=== PATIENT | male | born 2000 | race Caucasian/White ===

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

== ENCOUNTER 2022-04-11 13:04 | Emergency (ER) | payer OTHER ==
--- OUTSIDE RECORDS SUMMARY | 2022-04-11 13:06 | XMS REPORT | Continuity of Care Document ---
:2000 Author Organization [facility] t Address [address] [place] [address] Care Team Providers Name Role Phone [email or web address]_S Attending Clinician Unavailable [email or web address]_S Admitting Clinician Unavailable Payers Payer Name Policy Type Policy Number Effective Date Expiration Date Tiera elias [facility] [id number] 2016 00:00:00 [employer] (MEDICAID HMO) Problems This patient has no known problems. Allergies, Adverse Reactions, Alerts This patient has no known allergies or adverse reactions. Medications This patient has no known medications. Procedures This patient has no known procedures. Encounters Start End Encounter Admission Attending Care Care Encounter Source Date/Time Date/Time Type Type Clinicians Facility Department ID 2022-02-02 2022-02-02 Outpatient GC_TNC_Lovi PRIV PRIV [id number] [facility] 03:41:00 03:41:00 tt_S [id number] [facility] 2022-01-05 2022-01-05 Outpatient GC_TNC_[facility] PRIV PRIV [id number] [facility] 04:18:00 04:18:00 tt_S [id number] Med[facility] 2021-12-08 2021-12-08 Outpatient GC_TNC_[facility] PRIV PRIV [id number] [facility] 03:38:00 03:38:00 tt_S [id number] Med[facility] 2021-11-22 2021-11-22 Outpatient GC_TNC_Lovi PRIV PRIV [id number] [facility] 06:22:00 06:22:00 tt_S [id number] Med[facility] 2021-10-12 2021-10-12 Outpatient GC_TNC_[facility] PRIV PRIV [id number] [facility] 05:16:00 05:16:00 tt_S [id number] Med[facility] 2021-10-04 2021-10-04 Outpatient GC_TNC_[facility] PRIV PRIV [id number] [facility] 04:40:00 04:40:00 tt_S [id number] Med[facility] 2021-10-03 2021-10-03 Outpatient GC_TNC_[facility] PRIV PRIV [id number] [facility] 10:35:00 10:35:00 tt_S [id number] Medica l Results This patient has no known results.
--- NOTE | 2022-04-11 15:52 | EDPHYS ---
Physician Documentation [facility] Name: Jacques Arvizu Age: 21 yrs Sex: Male : 2000 Arrival Date: 04/11/2022 Time: 13:06 Bed DIS2 Private MD: ED Physician Julien De Luna HPI: 04/11 13:42 This 21 yrs old Male presents to ER via Ambulatory with complaints of Fever, Cough, jmm Runny Nose, Congestion, Chills. 13:42 Onset: The symptoms/episode began/occurred gradually, 1 day(s) ago. Modifying factors: jmm The patient has had contact with sick co-worker(s). 13:42 It is unknown whether or not the patient has had similar symptoms in the past. jmm 13:42 Associated signs and symptoms: Pertinent positives: cough. jm Historical: - Allergies: 13:31 No Known Allergies; ap3 - Home Meds: 13:31 ProAir HFA inhalation [Active]; ap3 - PMHx: 13:31 Asthma; ap3 - Immunization history:: Client reports receiving the 2nd dose of the Covid vaccine, Flu vaccine is up to date. - Social history:: Smoking status: Reported history of juuling and/or vaping. ROS: 13:42 Constitutional: Positive for body aches, chills. jmm 13:42 ENT: Positive for sore throat. 13:42 Respiratory: Positive for cough. 13:42 All other systems are negative. Exam: 13:42 Constitutional: This is a well developed, well nourished patient who is awake, alert, jmm and in no acute distress. Head/Face: atraumatic. Eyes: EOMI, no conjunctival erythema appreciated 13:42 Neck: Trachea midline, Supple Chest/axilla: Normal chest wall appearance and motion. Cardiovascular: Regular rate and rhythm. No edema appreciated Respiratory: Normal respirations, no respiratory distress appreciated Abdomen/GI: Non distended, soft Back: Normal ROM Skin: General appearance color normal MS/ Extremity: Moves all extremities, no obvious deformities appreciated, no edema noted to the lower extremities Neuro: Awake and alert Psych: Behavior is normal, Mood is normal, Patient is cooperative and pleasant 13:42 ENT: Posterior pharynx: Airway: normal, Tonsils: enlarged on the right, with erythema, erythema, that is moderate. Vital Signs: 13:29 BP 129 / 73; Pulse 91; Resp 17; Temp 98.5; Pulse Ox 99% ; Weight 108.86 kg; Height 6 ap3 ft. 3 in. (190.50 cm); 13:29 Body Mass Index 30.00 (108.86 kg, 190.50 cm) ap3 MDM: 13:42 Patient medically screened. [facility] 15:47 Data reviewed: vital signs, nurses notes. Counseling: I had a detailed discussion with [facility] the patient and/or guardian regarding: the historical points, exam findings, and any diagnostic results supporting the discharge/admit diagnosis, lab results, the need for outpatient follow up, to return to the emergency department if symptoms worsen or persist or if there are any questions or concerns that arise at home. ED course: Patient is alert and non toxic in appearance in the ED. No signs of resp distress. Patient advised to follow up with pcp and otherwise given strict return precautions. patient understood and agrees with the plan of care. . 04/11 13:19 Order name: Influenza Screen (a \\T\\ B); Complete Time: 15:17 [facility] 04/11 13:19 Order name: Strep; Complete Time: 15:17 [facility] 04/11 13:19 Order name: SARS-COV-2 RT PCR (Document "Date of Onset" if Symptomatic); Complete Time: [facility] 15:17 04/11 14:36 Order name: Throat Culture EDMS Administered Medications: No medications were administered Disposition Summary: 04/11/22 15:52 Discharge Ordered Location: Home [facility] Condition: Stable [facility] Diagnosis - Acute pharyngitis, unspecified [facility] Followup: [facility] - With: Private Physician - When: 2 - 3 days - Reason: Recheck today's complaints, Continuance of care, Re-evaluation by your physician Discharge Instructions: - Discharge Summary Sheet [facility] - Pharyngitis [facility] Forms: - Medication Reconciliation Form [facility] - Work release form [facility] - Thank You Letter [facility] - Antibiotic Education [facility] - Prescription Opioid Use [facility] Prescriptions: - cefdinir 300 mg Oral capsule - take 1 capsule by ORAL route every 12 hours for 10 days; 20 capsule; Refills: [facility] 0, Product Selection Permitted - albuterol sulfate 90 mcg/actuation Inhalation HFA aerosol inhaler - inhale 2 puff by INHALATION route every 4-6 hours; 1 Pump; Refills: 0, Product jm Selection Permitted Addendum: 04/12/2022 23:19 Co-signature as Attending Physician, Julien De Luna MD. r n Signatures: Dispatcher [employer] Alex Fernandez PA PA jmm Nieto, Roman, MD MD rn Gerda Martinez RN RN ap3 Corrections: (The following items were deleted from the chart) 04/11 13:32 13:31 Home Meds: None; ap3 ap3
--- NOTE | 2022-04-11 15:52 | ER ---
Nurse's Notes [facility] Name: Jacques Arvizu Age: 21 yrs Sex: Male : 2000 Arrival Date: 04/11/2022 Time: 13:06 Bed DIS2 Private MD: Diagnosis: Acute pharyngitis, unspecified Presentation: 04/11 13:29 Chief complaint: Patient states: he has been experiencing cough, chills and body aches ap3 which began yesterday morning. patient reports that his coworker tested positive for COVID, and believes he might have it as well. Coronavirus screen: Client presents with at least one sign or symptom that may indicate coronavirus-19. Ebola Screen: No symptoms or risks identified at this time. Initial Sepsis Screen: Does the patient meet any 2 criteria? Yes Does the patient have a suspected source of infection? No. Patient's initial sepsis screen is negative. Risk Assessment: Do you want to hurt yourself or someone else? Patient reports no desire to harm self or others. Onset of symptoms was April 10, 2022. 13:29 Method Of Arrival: Ambulatory ap3 13:29 Acuity: TORI 4 ap3 Triage Assessment: 13:32 General: Appears in no apparent distress. Behavior is calm, cooperative. Pain: ap3 Complains of pain in generalized body aches. EENT: Reports nasal congestion. Neuro: Level of Consciousness is awake, alert, obeys commands, Oriented to person, place, time, situation, Appropriate for age. Cardiovascular: Patient's skin is warm and dry. Respiratory: Airway is patent Respiratory effort is even, unlabored, Breath sounds are clear bilaterally. Historical: - Allergies: 13:31 No Known Allergies; ap3 - Home Meds: 13:31 ProAir HFA inhalation [Active]; ap3 - PMHx: 13:31 Asthma; ap3 - Immunization history:: Client reports receiving the 2nd dose of the Covid vaccine, Flu vaccine is up to date. - Social history:: Smoking status: Reported history of juuling and/or vaping. Screenin:33 Abuse screen: Denies threats or abuse. Nutritional screening: No deficits noted. ap3 Tuberculosis screening: No symptoms or risk factors identified. Fall Risk None identified. Assessment: 16:02 General: Appears in no apparent distress. Behavior is calm, cooperative. Pain: iw Complains of pain in throat. Neuro: Webb Agitation-Sedation Scale (RASS): 0 - Alert and Calm Level of Consciousness is awake, alert, obeys commands, Oriented to person, place, time, situation, Moves all extremities. Cardiovascular: Patient's skin is warm and dry. Respiratory: Respiratory effort is even, unlabored, Respiratory pattern is regular, symmetrical. Respiratory: Reports cough that is. Derm: Skin is intact, is healthy with good turgor. Vital Signs: 13:29 BP 129 / 73; Pulse 91; Resp 17; Temp 98.5; Pulse Ox 99% ; Weight 108.86 kg; Height 6 ap3 ft. 3 in. (190.50 cm); 13:29 Body Mass Index 30.00 (108.86 kg, 190.50 cm) ap3 ED Course: 13:06 Patient arrived in ED. rg4 13:09 Alex Hernandez PA is PHCP. yari 13:09 Julien De Luna MD is Attending Physician. [facility] 13:31 Triage completed. ap3 13:33 Arm band placed on right wrist. ap3 13:38 COVID swab sent to lab. Flu and/or RSV swab sent to lab. Strep swab sent to lab. ap3 14:49 Darline Mock, RN is Primary Nurse. aa5 16:02 Jocelyn Doss, KIRAN is Primary Nurse. iw 16:03 Patient has correct armband on for positive identification. iw 16:03 No provider procedures requiring assistance completed. Patient did not have IV access iw during this emergency room visit. Administered Medications: No medications were administered Medication: 16:03 VIS not applicable for this client. iw Outcome: 15:52 Discharge ordered by MD. [facility] 16:03 Discharged to home ambulatory. iw 16:03 Condition: good 16:03 Discharge instructions given to patient, Instructed on discharge instructions, follow up and referral plans. medication usage, Demonstrated understanding of instructions, follow-up care, medications, Prescriptions given X 2. 16:03 Patient left the ED. iw Signatures: Alex Hernandez PA PA jmm Williams, Irene, RN RN iw Calderon, Audri, RN RN Deirdre Riggs rg4 Gerda Martinez RN RN ap3 Corrections: (The following items were deleted from the chart) 13:32 13:31 Home Meds: None; ap3 ap3
[2022-04-11 16:20] VITALS: BP 129/73; TEMP 98.5; O2SAT 99
== END 2022-04-11 16:03 | disposition home or self-care (01) ==
LOC: ER 13:04
DX: J02.9 Acute pharyngitis, unspecified (principal); R05.9 Cough, unspecified; J45.909 Unspecified asthma, uncomplicated; Z20.822 Contact with and (suspected) exposure to COVID-19
CPT/HCPCS: 87070; 87081; 87804 ×2; 99283; U0003

== ENCOUNTER 2022-07-12 17:02 | Emergency (ER) | payer OTHER ==
--- OUTSIDE RECORDS SUMMARY | 2022-07-12 17:05 | XMS REPORT | Continuity of Care Document ---
:2000 Author Organization [facility] t Address [address] [place] [address] Care Team Providers Name Role Phone GC_TNC_Lovitt_S Attending Clinician Unavailable GC_TNC_Lovitt_S Admitting Clinician Unavailable Payers Payer Name Policy Type Policy Number Effective Date Expiration Date Tiera elias [facility] [id number] 2016 00:00:00 [employer] (MEDICAID HMO) Problems [...] 2022-02-02 2022-02-02 Outpatient GC_TNC_Lovi PRIV PRIV [id number] [facility] 03:41:00 03:41:00 tt_S [id number] [facility] 2022-01-05 2022-01-05 Outpatient GC_TNC_Lovi PRIV PRIV [id number] [facility] 04:18:00 04:18:00 tt_S [id number] Medica [facility] 2021-12-08 2021-12-08 Outpatient GC_TNC_Lovi PRIV PRIV [id number] [facility] 03:38:00 03:38:00 tt_S [id number] Medica l 2021-11-22 2021-11-22 Outpatient GC_TNC_Lovi PRIV PRIV [id number] [facility] 06:22:00 06:22:00 tt_S [id number] Medica l 2021-10-12 2021-10-12 Outpatient GC_TNC_Lovi PRIV PRIV [id number] [facility] 05:16:00 05:16:00 tt_S [id number] Medica l 2021-10-04 2021-10-04 Outpatient GC_TNC_Lovi PRIV PRIV [id number] [facility] 04:40:00 04:40:00 tt_S [id number] Medica l 2021-10-03 2021-10-03 Outpatient GC_TNC_Lovi PRIV PRIV [id number] [facility] 10:35:00 10:35:00 tt_S [id number] Medica l Results This patient has no known results.
--- NOTE | 2022-07-12 18:20 | EDPHYS ---
Physician Documentation [facility] Name: Jacques Arvizu Age: 22 yrs Sex: Male : 2000 Arrival Date: 07/12/2022 Time: 17:05 Bed Waiting Private MD: ED Physician Christos Leos HPI: 07/12 18:18 This 22 yrs old Male presents to ER via Ambulatory with complaints of Sore Throat. jmm 18:18 The patient presents with sore throat. Onset: The symptoms/episode began/occurred jmm gradually, 4 day(s) ago. Modifying factors: The symptoms are alleviated by nothing, the symptoms are aggravated by nothing. Associated signs and symptoms: Pertinent positives: cough, Pertinent negatives chest pain, fever. The patient has experienced similar episodes in the past. Historical: - Allergies: 18:09 No Known Allergies; kb3 - Home Meds: 18:09 ProAir HFA inhalation [Active]; kb3 - PMHx: 18:09 Asthma; kb3 - PSHx: 18:09 None; kb3 - Immunization history:: Adult Immunizations up to date, Client reports receiving the 2nd dose of the Covid vaccine, Last tetanus immunization: unknown. - Social history:: Smoking status: Patient denies any tobacco usage or history of. ROS: 18:18 Constitutional: Positive for body aches, chills. jmm 18:18 ENT: Positive for sore throat. 18:18 Respiratory: Positive for cough. 18:18 All other systems are negative. Exam: 18:18 Constitutional: This is a well developed, well nourished patient who is awake, alert, jmm and in no acute distress. Head/Face: atraumatic. Eyes: EOMI, no conjunctival erythema appreciated 18:18 Neck: Trachea midline, Supple Chest/axilla: Normal chest wall appearance and motion. Cardiovascular: Regular rate and rhythm. No edema appreciated Respiratory: Normal respirations, no respiratory distress appreciated Abdomen/GI: Non distended Back: Normal ROM Skin: General appearance color normal MS/ Extremity: Moves all extremities, no obvious deformities appreciated, no edema noted to the lower extremities Neuro: Awake and alert Psych: Behavior is normal, Mood is normal, Patient is cooperative and pleasant 18:18 ENT: Posterior pharynx: erythema, that is moderate, peritonsillar mass, is not appreciated. Vital Signs: 18:06 Pulse 95; Resp 20; Temp 98.8; Pulse Ox 99% ; Weight 108.86 kg; Height 6 ft. 3 in. kb3 (190.50 cm); Pain 4/10; 18:06 Body Mass Index 30.00 (108.86 kg, 190.50 cm) kb3 MDM: 18:11 Patient medically screened. [facility] 18:18 Data reviewed: vital signs, nurses notes. Counseling: I had a detailed discussion with yari the patient and/or guardian regarding: the historical points, exam findings, and any diagnostic results supporting the discharge/admit diagnosis, the need for outpatient follow up, to return to the emergency department if symptoms worsen or persist or if there are any questions or concerns that arise at home. 07/12 18:12 Order name: Strep; Complete Time: 18:37 [facility] 07/12 18:37 Order name: Throat Culture EDMS Administered Medications: 18:17 Drug: Decadron (dexamethasone) 10 mg Route: IM; Site: left deltoid; kb3 Disposition: 23:09 Co-signature as Attending Physician, Christos Leos DO I agree with the assessment and ms3 plan of care. Disposition Summary: 07/12/22 18:19 Discharge Ordered Location: Home [facility] Condition: Stable [facility] Diagnosis - Acute pharyngitis, unspecified [facility] Followup: [facility] - With: Private Physician - When: 2 - 3 days - Reason: Recheck today's complaints, Continuance of care, Re-evaluation by your physician Discharge Instructions: - Discharge Summary Sheet [facility] - Pharyngitis [facility] Forms: - Medication Reconciliation Form [facility] - Thank You Letter [facility] - Antibiotic Education [facility] - Prescription Opioid Use [facility] - Work release form kb3 Prescriptions: - Amoxicillin 875 mg Oral Tablet - take 1 tablet by ORAL route every 12 hours for 10 days; 20 tablet; Refills: 0, [facility] Product Selection Permitted - albuterol sulfate 90 mcg/actuation Inhalation HFA aerosol inhaler - inhale 2 puff by INHALATION route every 4 hours As needed; 1 Pump; Refills: 0, [facility] Product Selection Permitted Signatures: Dispatcher [employer] EDAlex Mcdaniel PA PA jmm Sims, Marcus, DO DO ms3 Angelica Aponte, RN RN kb3
--- NOTE | 2022-07-12 18:20 | ER ---
Nurse's Notes [facility] Sia Name: Jacques Arvizu Age: 22 yrs Sex: Male : 2000 Arrival Date: 07/12/2022 Time: 17:05 Bed Waiting Private MD: Diagnosis: Acute pharyngitis, unspecified Presentation: 07/12 18:06 Chief complaint: Patient states: Pt reports sore throat x4 days, cough/congestion, kb3 nasal congestion/runny nose since today. Coronavirus screen: Vaccine status: Patient reports receiving the 2nd dose of the covid vaccine. Client denies travel out of the [place] in the last 14 days. Ebola Screen: Patient negative for fever greater than or equal to 101.5 degrees Fahrenheit, and additional compatible Ebola Virus Disease symptoms Patient denies exposure to infectious person. Patient denies travel to an Ebola-affected area in the 21 days before illness onset. No symptoms or risks identified at this time. Initial Sepsis Screen: Does the patient meet any 2 criteria? No. Patient's initial sepsis screen is negative. Does the patient have a suspected source of infection? No. Patient's initial sepsis screen is negative. Risk Assessment: Do you want to hurt yourself or someone else? Patient reports no desire to harm self or others. Onset of symptoms was July 08, 2022. 18:06 Method Of Arrival: Ambulatory kb3 18:06 Acuity: TORI 4 kb3 Triage Assessment: 18:09 General: Appears in no apparent distress. Behavior is calm, cooperative. Pain: kb3 Complains of pain in neck Pain does not radiate. Pain currently is 4 out of 10 on a pain scale. EENT: Throat is reddened has enlarged tonsils. Historical: - Allergies: 18:09 No Known Allergies; kb3 - Home Meds: 18:09 ProAir HFA inhalation [Active]; kb3 - PMHx: 18:09 Asthma; kb3 - PSHx: 18:09 None; kb3 - Immunization history:: Adult Immunizations up to date, Client reports receiving the 2nd dose of the Covid vaccine, Last tetanus immunization: unknown. - Social history:: Smoking status: Patient denies any tobacco usage or history of. Screenin:15 Abuse screen: Denies threats or abuse. Denies injuries from another. Nutritional kb3 screening: No deficits noted. Tuberculosis screening: No symptoms or risk factors identified. Fall Risk None identified. Assessment: 18:15 General: See triage note. Strep swab done in triage. PT awaiting results in lobby. kb3 18:15 Respiratory: Airway is patent Respiratory effort is even, unlabored, Breath sounds are kb3 clear bilaterally. Vital Signs: 18:06 Pulse 95; Resp 20; Temp 98.8; Pulse Ox 99% ; Weight 108.86 kg; Height 6 ft. 3 in. kb3 (190.50 cm); Pain 4/10; 18:06 Body Mass Index 30.00 (108.86 kg, 190.50 cm) kb3 ED Course: 17:05 Patient arrived in ED. mr 17:07 Alex Hernandez PA is PHCP. [facility] 17:07 Christos Leos DO is Attending Physician. [facility] 18:09 Triage completed. kb3 18:09 Arm band placed on left wrist. kb3 18:15 Patient has correct armband on for positive identification. kb3 18:15 No provider procedures requiring assistance completed. Patient did not have IV access kb3 during this emergency room visit. Administered Medications: 18:17 Drug: Decadron (dexamethasone) 10 mg Route: IM; Site: left deltoid; kb3 Medication: 18:15 VIS not applicable for this client. kb3 Outcome: 18:19 Discharge ordered by . [facility] 18:52 Discharged to home ambulatory. kb3 18:52 Condition: good 18:52 Discharge instructions given to patient, Instructed on discharge instructions, follow up and referral plans. medication usage, Demonstrated understanding of instructions, follow-up care, medications, Prescriptions given X 2. 18:52 Patient left the ED. kb3 Signatures: Alex Hernandez PA PA jmm Rivera, Mary mr AponteAngelica, RN RN kb3 Corrections: (The following items were deleted from the chart) 18:51 18:50 General: See triage note. Strep swab done in triage. PT awaiting results in kb3 lobby. kb3
[2022-07-12] MEDS ORDERED: dexAMETHasone 10 MG/ML VIAL ONE (18:24)
[2022-07-12 19:56] VITALS: TEMP 98.8; O2SAT 99
== END 2022-07-12 18:52 | disposition home or self-care (01) ==
LOC: ER 17:02
DX: J02.9 Acute pharyngitis, unspecified (principal); J45.909 Unspecified asthma, uncomplicated
CPT/HCPCS: 87070; 87081; 96372; 99283; J1100

== ENCOUNTER 2023-01-05 07:22 | Emergency (ER) | payer OTHER ==
--- OUTSIDE RECORDS SUMMARY | 2023-01-05 07:24 | XMS REPORT | Continuity of Care Document ---
:[address] [facility] t Address [address] [place] [address] Care Team Providers Name Role Phone GC_TNC_Lovitt_S Attending Clinician Unavailable GC_TNC_Lovitt_S Admitting Clinician Unavailable Payers Payer Name Policy Type Policy Number Effective Date Expiration Date Tiera elias [facility] [id number] 2016 00:00:00 [employer] (MEDICAID HMO) Problems [...] 2022-02-02 2022-02-02 Outpatient GC_TNC_Lovi PRIV PRIV [id number] [facility] 03:41:00 03:41:00 tt_S [id number] Medica l 2022-01-05 2022-01-05 Outpatient GC_TNC_Lovi PRIV PRIV [id number] [facility] 04:18:00 04:18:00 tt_S [id number] Medica l 2021-12-08 2021-12-08 Outpatient GC_TNC_Lovi PRIV PRIV [id number] [facility] 03:38:00 03:38:00 tt_S [id number] Medica l 2021-11-22 2021-11-22 Outpatient GC_TNC_Lovi PRIV PRIV [id number] [facility] 06:22:00 06:22:00 tt_S [id number] Medica l 2021-10-12 2021-10-12 Outpatient GC_TNC_Lovi PRIV PRIV [id number] [facility] 05:16:00 05:16:00 tt_S [id number] Medica l 2021-10-04 2021-10-04 Outpatient GC_TNC_Lovi PRIV PRIV [id number] [facility] 04:40:00 04:40:00 tt_S [id number] Medica l 2021-10-03 2021-10-03 Outpatient GC_TNC_Lovi PRIV PRIV [id number] [facility] 10:35:00 10:35:00 tt_S [id number] Medica l Results This patient has no known results.
[2023-01-05] MEDS ORDERED: IBUPROFEN 200 MG TAB PO ONE (07:43)
[2023-01-05] MEDS ORDERED: IBUPROFEN 400 MG TAB ONE (07:43)
[2023-01-05 08:37] LABS: SARS-COV-2 RT PCR NEGATIVE (NEGATIVE)
--- NOTE | 2023-01-05 08:39 | RAD REPORT ---
EXAM DESCRIPTION: RAD - Chest Pa And Lat (2 Views) - 01/05/2023 8:31 am CLINICAL HISTORY: Cough COMPARISON: <Comparisons> FINDINGS: Lines: None. Lungs: No evidence of edema or pneumonia. Pleural: No significant pleural effusions or pneumothorax. Cardiac: The heart size is within normal limits. Mediastinum: Within normal limits. Bones: No acute fractures. Other: None IMPRESSION: No acute cardiopulmonary disease.
--- NOTE | 2023-01-05 08:58 | ER ---
Nurse's Notes [facility] Name: Jacques Arvizu Age: 22 yrs Sex: Male : 2000 Arrival Date: 01/05/2023 Time: 07:25 Bed 5 Private MD: Diagnosis: Acute upper respiratory infection, unspecified;Cough;Myalgia Presentation: 01/05 07:26 Chief complaint: Patient states: nausea x 1 week. Sore throat, subjective fever, cough, aa5 body aches since yesterday. 07:26 Coronavirus screen: cough unrelated to allergies, fever, muscle pain, nausea. Ebola aa5 Screen: Patient denies travel to an Ebola-affected area in the 21 days before illness onset. Initial Sepsis Screen: Does the patient meet any 2 criteria? No. Patient's initial sepsis screen is negative. Does the patient have a suspected source of infection? No. Patient's initial sepsis screen is negative. Risk Assessment: Do you want to hurt yourself or someone else? Patient reports no desire to harm self or others. Onset of symptoms was December 2022. 07:26 Acuity: TORI 4 aa5 07:26 Method Of Arrival: Ambulatory aa5 Historical: - Allergies: 07:35 No Known Allergies; aa5 - PMHx: 07:35 Asthma; aa5 - Immunization history:: Adult Immunizations unknown. - Social history:: Smoking status: Patient denies any tobacco usage or history of. Screenin:26 [facility] ED Fall Risk Assessment (Adult) History of falling in the last 3 months, aa5 including since admission No falls in past 3 months (0 pts) Confusion or Disorientation No (0 pts) Intoxicated or Sedated No (0 pts) Impaired Gait No (0 pts) Mobility Assist Device Used No (0 pt) Altered Elimination No (0 pt) Score/Fall Risk Level 0 - 2 = Low Risk. Abuse screen: Denies threats or abuse. Nutritional screening: No deficits noted. Tuberculosis screening: No symptoms or risk factors identified. Assessment: 07:26 General: Appears comfortable, Behavior is calm, cooperative. Pain: Denies pain. Neuro: aa5 Level of Consciousness is awake, alert, obeys commands, Oriented to person, place, time, situation. Cardiovascular: Heart tones S1 S2 present Rhythm is regular. Respiratory: Airway is patent Respiratory effort is even, unlabored, Respiratory pattern is regular, symmetrical, Breath sounds are clear bilaterally. GI: Abdomen is round non-distended, Bowel sounds present X 4 quads. Reports nausea, Patient currently denies vomiting. : No signs and/or symptoms were reported regarding the genitourinary system. EENT: Reports sore throat . Derm: Skin is pink, warm \T\ dry. Musculoskeletal: Range of motion: intact in all extremities. 09:18 Reassessment: Patient appears in no apparent distress at this time. Patient and/or iw family updated on plan of care and expected duration. Pain level reassessed. Patient is alert, oriented x 3, equal unlabored respirations, skin warm/dry/pink. Patient states feeling better. Patient states symptoms have improved. Vital Signs: 07:26 BP 134 / 80; Pulse 75; Resp 18 S; Temp 98.0(O); Pulse Ox 99% on R/A; Weight 108.86 kg aa5 (R); Height 6 ft. 3 in. (190.50 cm) (R); Pain 0/10; 07:26 Body Mass Index 30.00 (108.86 kg, 190.50 cm) aa5 ED Course: 07:25 Patient arrived in ED. mr 07:26 Arm band placed on. aa5 07:26 Patient has correct armband on for positive identification. Bed in low position. Call aa5 light in reach. Side rails up X 1. Adult w/ patient. 07:27 Christos Leos DO is Attending Physician. ms3 07:33 Darline Mock, RN is Primary Nurse. aa5 07:35 Triage completed. aa5 08:58 John Gallegos MD is Referral Physician. ms3 09:18 No provider procedures requiring assistance completed. Patient did not have IV access iw during this emergency room visit. Administered Medications: 07:42 Drug: Ibuprofen 600 mg Route: PO; aa5 Medication: 09:18 VIS not applicable for this client. iw Outcome: 08:58 Discharge ordered by . ms3 09:18 Discharged to home ambulatory, with family. iw 09:18 Condition: good 09:18 Discharge instructions given to patient, family, Instructed on discharge instructions, follow up and referral plans. medication usage, Demonstrated understanding of instructions, follow-up care, medications, Prescriptions given X 1. 09:18 Patient left the ED. iw Signatures: Carlos Liliana mr Jocelyn Doss, RN RN iw Darline Mock, RN RN aa5 Leos, Christos, DO ms3 Corrections: (The following items were deleted from the chart) 07:49 07:26 Respiratory: Airway is patent Respiratory effort is even, unlabored, Respiratory aa5 pattern is regular, symmetrical, aa5 07:49 07:26 GI: Abdomen is round non-distended, Bowel sounds present X 4 quads. aa5 aa5
--- NOTE | 2023-01-05 08:58 | EDPHYS ---
Physician Documentation [facility] Name: Jacques Arvizu Age: 22 yrs Sex: Male : 2000 Arrival Date: 01/05/2023 Time: 07:25 Bed 5 Private MD: ED Physician Christos Leos HPI: 01/05 08:02 This 22 yrs old Male presents to ER via Ambulatory with complaints of Flu Symptoms. ms3 08:02 22-year-old male with past medical history of asthma presents for nausea x1 week, sore ms3 throat that began yesterday and fever that began at 4 AM. Patient endorses cough and body aches. Patient denies pain at this time. Patient denies alleviating or inciting factors. Patient has not taken medications for symptoms. Historical: - Allergies: 07:35 No Known Allergies; aa5 - PMHx: 07:35 Asthma; aa5 - Immunization history:: Adult Immunizations unknown. - Social history:: Smoking status: Patient denies any tobacco usage or history of. ROS: 08:02 Constitutional: Negative for fever, and chills. Neck: Negative for injury, pain, and ms3 swelling, Cardiovascular: Negative for chest pain, and palpitations. Abdomen/GI: Negative for abdominal pain, nausea, vomiting, diarrhea, and constipation, Back: Negative for injury and pain, MS/Extremity: Negative for injury and deformity, Skin: Negative for injury, rash, and discoloration. 08:02 ENT: Positive for sore throat. 08:02 Respiratory: Positive for cough. 08:02 All other systems are negative. Exam: 08:02 Constitutional: This is a well developed, well nourished patient who is awake, alert, ms3 and in no acute distress. Head/Face: Normocephalic, atraumatic. Chest/axilla: Normal chest wall appearance and motion. Nontender with no deformity. Cardiovascular: Regular rate and rhythm with a normal S1 and S2. No gallops, murmurs, or rubs. Normal PMI, no JVD. No pulse deficits. Respiratory: Lungs have equal breath sounds bilaterally, clear to auscultation and percussion. No rales, rhonchi or wheezes noted. No increased work of breathing, no retractions or nasal flaring. Abdomen/GI: Soft, non-tender, with normal bowel sounds. No distension or tympany. No guarding or rebound. No evidence of tenderness throughout. Skin: Warm, dry with normal turgor. Normal color with no rashes, no lesions, and no evidence of cellulitis. 08:02 ENT: PND. Vital Signs: 07:26 BP 134 / 80; Pulse 75; Resp 18 S; Temp 98.0(O); Pulse Ox 99% on R/A; Weight 108.86 kg aa5 (R); Height 6 ft. 3 in. (190.50 cm) (R); Pain 0/10; 07:26 Body Mass Index 30.00 (108.86 kg, 190.50 cm) aa5 MDM: 07:36 Patient medically screened. ms3 08:02 Differential Diagnosis: Bronchitis Influenza Upper Respiratory Infection Viral Syndrome ms3 Pneumonia. 08:31 Independent interpretation of the following test(s) in the Emergency Department X-Ray: ms3 My interpretation is Xray image reviewed by me shows no PNA. 09:01 Data reviewed: vital signs, nurses notes, lab test result(s), radiologic studies, and ms3 as a result, I will discharge patient. I considered the following discharge prescriptions or medication management in the emergency department Medications were administered in the Emergency Department. See MAR. I considered the following discharge prescriptions or medication management in the emergency department I discussed and recommended Over The Counter medications. Independent interpretation of the following test(s) in the Emergency Department. Historians other than the Patient: Parent: Patients father. Counseling: I had a detailed discussion with the patient and/or guardian regarding: the historical points, exam findings, and any diagnostic results supporting the discharge/admit diagnosis, lab results, radiology results, the need for outpatient follow up, to return to the emergency department if symptoms worsen or persist or if there are any questions or concerns that arise at home. ED course: Discussed negative chest x-ray, negative flu, negative COVID with patient and his father. Patient to follow-up with Dr. Gallegos in 2 to 3 days. Patient understands and agrees with plan. All questions were answered. Return precautions discussed include worsening symptoms, or any other concerns. Patient given prescription for albuterol inhaler. On reevaluation patient is alert and oriented x4, no apparent distress, nontoxic, ambulatory in emergency department, speaking full sentences. 01/05 07:36 Order name: COVID-19/FLU A+B ms3 01/05 07:36 Order name: Chest Pa And Lat (2 Views) XRAY ms3 01/05 08:38 Order name: COVID-19/FLU A+B; Complete Time: 08:50 EDMS 01/05 08:40 Order name: RAD; Complete Time: 08:50 EDMS Administered Medications: 07:42 Drug: Ibuprofen 600 mg Route: PO; aa5 Disposition Summary: 01/05/23 08:58 Discharge Ordered Location: Home ms3 Condition: Stable ms3 Diagnosis - Acute upper respiratory infection, unspecified ms3 - Cough ms3 - Myalgia ms3 Followup: ms3 - With: John Gallegos MD - When: 2 - 3 days - Reason: Recheck today's complaints Discharge Instructions: - Discharge Summary Sheet ms3 - Upper Respiratory Infection, Adult, [id number] ms3 Forms: - Work release form eb - Medication Reconciliation Form ms3 - Thank You Letter ms3 - Antibiotic Education ms3 - Prescription Opioid Use ms3 Prescriptions: - albuterol sulfate 90 mcg/actuation Inhalation HFA aerosol inhaler - inhale 2 puff by INHALATION route every 4 hours; 1 Pump; Refills: 0, Product ms3 Selection Permitted Signatures: Dispatcher [employer] Darline Chou RN RN aa5 Christos Leos DO DO ms3 Corrections: (The following items were deleted from the chart) 09:03 08:31 Independent interpretation of the following test(s) in the Emergency Department ms3 X-Ray: My interpretation is Xray image reviewed by me shows RLL PNA. ms3
[2023-01-05 09:23] VITALS: BP 134/80; TEMP 98; O2SAT 99
== END 2023-01-05 09:18 | disposition home or self-care (01) ==
LOC: ER 07:22
DX: J06.9 Acute upper respiratory infection, unspecified (principal); M79.10 Myalgia, unspecified site; Z20.822 Contact with and (suspected) exposure to COVID-19
CPT/HCPCS: 0240U; 71046; 99283